=== PATIENT | female | born 1960 | race Caucasian/White ===

== ENCOUNTER 2018-01-09 13:08 | Observation (INO) ==
[2018-01-09] MEDS ORDERED: ENOXAPARIN 100 MG/ML SYRINGE SUBCUT STA (14:19)
[2018-01-09] MEDS ORDERED: ASPIRIN 325 MG TABLET PO STA (14:19)
[2018-01-09] MEDS ORDERED: ASPIRIN 325 MG TABLET ONE (14:42)
[2018-01-09] MEDS ORDERED: ENOXAPARIN 80 MG/0.8 ML SYRINGE SUBCUT ONE (14:42)
[2018-01-09] MEDS ORDERED: hydrALAZINE 20 MG/1 ML VIAL IV STA (14:52)
[2018-01-09] MEDS ORDERED: hydrALAZINE 20 MG/1 ML VIAL ONE (14:53)
[2018-01-09 15:45] LABS: Basophils # 0.2 10*3/uL (0.0-0.2); Basophils % 0.9 % (0.0-0.8); Eosinophils # 0.4 10*3/uL (0.0-0.87); Eosinophils % 2.2 % (0.00-10.9); Hematocrit 44.3 VOL% (35.7-47.0); Immature Granulocytes % 0.9 %; Immature Granulocytes Absolute 0.14 #; Lymphocytes % 12.2 % (21.3-54.2); Mean Corpuscular HGB Conc 33.9 GM/DL (32-36); Mean Corpuscular Hemoglobin 30 PG (27-34); Mean Corpuscular Volume 88.6 FL (87-102); Mean Platelet Volume 11.1 FL (9.6-12.0); Monocytes # 0.8 10*3/uL (0.11-0.8); Monocytes % 4.7 % (1.7-12.7); Neutrophils # 12.9 10*3/uL (1.4-7.4); Neutrophils % 79.1 % (38.7-73.9); Platelet Count 288 T/CUMM (130-400); Red Cell Distribution Width 12.7 % (9.3-17.3); White Blood Count 16.3 T/CUMM (4-12)
[2018-01-09 15:55] LABS: INR 0.9
[2018-01-09] MEDS ORDERED: ONDANSETRON 4 MG/2 ML VIAL IV STA (16:03)
[2018-01-09] MEDS ORDERED: MORPHINE 4 MG/1 ML VIAL IV STA (16:03)
[2018-01-09] MEDS ORDERED: ONDANSETRON 4 MG/2 ML VIAL ONE (16:04)
[2018-01-09] MEDS ORDERED: MORPHINE 4 MG/1 ML VIAL ONE (16:05)
[2018-01-09 16:08] LABS: Albumin 3.8 G/DL (3.4-5.0); Bilirubin,Total 0.9 MG/DL (0.2-1.0); Calcium 9.6 MG/DL (8.5-10.1); Osmolality,Calculated 276.7 MOS/KG (273-304); Potassium 4.1 MMOL/L (3.5-5.1)
[2018-01-09] MEDS ORDERED: MAGNESIUM HYDROXIDE SUSP 30 ML UDCUP PO PRN (17:15)
[2018-01-09] MEDS ORDERED: POTASSIUM CHLORIDE 20 MEQ TABLET PO PRN ×3 (17:15→17:18)
[2018-01-09] MEDS ORDERED: MAGNESIUM SULF RIDER 4 GM in PREMIX 1 EACH IV PRN (17:15)
[2018-01-09] MEDS ORDERED: ACETAMINOPHEN 325 MG TABLET PO PRN (17:15)
[2018-01-09] MEDS ORDERED: ZALEPLON 5 MG CAPSULE PO PRN (17:15)
[2018-01-09] MEDS ORDERED: MAGNESIUM SULF RIDER 2 GM in PREMIX 1 EACH IV PRN (17:15)
[2018-01-09] MEDS ORDERED: FUROSEMIDE 40 MG TABLET PO PRN (17:18)
[2018-01-09] MEDS ORDERED: cloNIDine 0.1 MG TABLET PO PRN (17:18)
[2018-01-09] MEDS: SODIUM CHLORIDE 0.45% 1,000 ML IV SCH (19:05)
[2018-01-09] MEDS ORDERED: ALUM/MAG/SIMETH/LIDO VISC 1:1 30 ML BOTTLE PO ONE (19:42)
[2018-01-09] MEDS ORDERED: FLURAZEPAM HCL 30 MG PO SCH (21:00)
[2018-01-09] MEDS: TEMAZEPAM 15 MG CAPSULE PO SCH (21:49)
[2018-01-09] MEDS: MORPHINE 4 MG/1 ML VIAL IV PRN (21:49)
[2018-01-09] MEDS: tiZANidine 4 MG TABLET PO SCH (21:50)
[2018-01-09] MEDS: TOPIRAMATE 100 MG TABLET PO SCH (21:50)
[2018-01-09] MEDS: ASPIRIN EC 81 MG TABLET PO SCH (21:50)
[2018-01-09] MEDS: LORazepam 1 MG TABLET PO SCH (21:50)
[2018-01-09] MEDS: ZONISAMIDE 100 MG CAPSULE PO SCH (21:51)
[2018-01-09] MEDS: ATORVASTATIN 20 MG TABLET PO SCH (21:51)
[2018-01-10] MEDS: MORPHINE 4 MG/1 ML VIAL IV PRN ×5 (03:15→23:58)
[2018-01-10] MEDS ORDERED: ASPIRIN 325 MG TABLET ONE (07:02)
[2018-01-10] MEDS ORDERED: ASPIRIN CHEW 81 MG TABLET PO ONE (07:22)
[2018-01-10 07:47] LABS: Risk Ratio 2.11; VLDL CHOLESTEROL 22.4 MG/DL
[2018-01-10] MEDS: SODIUM CHLORIDE 0.45% 1,000 ML IV SCH ×4 (07:54→18:48)
[2018-01-10] MEDS: PANTOPRAZOLE 40 MG TABLET PO SCH (09:07)
[2018-01-10] MEDS: CLOPIDOGREL 75 MG TABLET PO SCH (09:08)
[2018-01-10] MEDS: tiZANidine 4 MG TABLET PO SCH ×3 (09:11→21:40)
[2018-01-10] MEDS: CHOLECALCIFEROL 1,000 UNIT TABLET PO SCH ×2 (09:11→15:37)
[2018-01-10] MEDS: ZONISAMIDE 100 MG CAPSULE PO SCH ×2 (09:11→21:40)
[2018-01-10] MEDS: FERROUS SULFATE 325 MG TABLET PO SCH (09:11)
[2018-01-10 11:24] LABS: Basophils # 0.1 10*3/uL (0.0-0.2); Basophils % 0.5 % (0.0-0.8); Eosinophils # 0.1 10*3/uL (0.0-0.87); Eosinophils % 0.6 % (0.00-10.9); Hemoglobin 13.3 GM/DL (12.0-16.0); Immature Granulocytes % 0.8 %; Immature Granulocytes Absolute 0.11 #; Lymphocytes # 1.1 10*3/uL (1.4-4.0); Mean Corpuscular HGB Conc 33.3 GM/DL (32-36); Mean Corpuscular Hemoglobin 30 PG (27-34); Mean Corpuscular Volume 89.7 FL (87-102); Monocytes # 0.6 10*3/uL (0.11-0.8); Monocytes % 4.4 % (1.7-12.7); Neutrophils # 11.7 10*3/uL (1.4-7.4); Neutrophils % 85.7 % (38.7-73.9); Platelet Count 191 T/CUMM (130-400); Red Blood Count 4.46 MC/CUMM (3.8-5.5); White Blood Count 13.6 T/CUMM (4-12)
[2018-01-10] MEDS: ONDANSETRON 4 MG/2 ML VIAL IV PRN ×3 (13:30→23:55)
[2018-01-10] MEDS ORDERED: POTASSIUM CHLORIDE RIDER 10 MEQ in PREMIX 1 EACH IV PRN (15:08)
[2018-01-10] MEDS: LORazepam 1 MG TABLET PO SCH ×4 (15:37→21:38)
[2018-01-10] MEDS: TOPIRAMATE 100 MG TABLET PO SCH ×2 (15:38→21:39)
[2018-01-10 16:41] LABS: Apearance,Urine CLEAR (Clear); Bilirubin,Urine Negative (Negative); Blood, Urine Negative (Negative); Glucose,Urine (UA) Negative (Negative); Ketones,Urine Negative (Negative); Nitrite,Urine Negative (Negative); Protein,Urine Negative; Squamous Epithelial Cell,Urine Occasional /HPF (0-10); Urine Color Straw (Yellow); Urine Specific Gravity 1.005 (1.001-1.035); Urine Urobilinogen < 2.0 EU/DL (0.2-1.0); WBC,Urine <1 /HPF (0-6)
[2018-01-10] MEDS: ASPIRIN EC 81 MG TABLET PO SCH (21:37)
[2018-01-10] MEDS: ATORVASTATIN 20 MG TABLET PO SCH (21:38)
[2018-01-10] MEDS: TEMAZEPAM 15 MG CAPSULE PO SCH (21:38)
[2018-01-11] MEDS: ONDANSETRON 4 MG/2 ML VIAL IV PRN ×2 (03:57→09:53)
[2018-01-11] MEDS: MORPHINE 4 MG/1 ML VIAL IV PRN ×2 (04:02→09:52)
[2018-01-11 05:00] LABS: Basophils # 0.1 10*3/uL (0.0-0.2); Basophils % 0.4 % (0.0-0.8); Eosinophils # 0.1 10*3/uL (0.0-0.87); Eosinophils % 0.9 % (0.00-10.9); Hematocrit 38.6 VOL% (35.7-47.0); Hemoglobin 12.6 GM/DL (12.0-16.0); Immature Granulocytes % 0.5 %; Immature Granulocytes Absolute 0.06 #; Lymphocytes # 1.1 10*3/uL (1.4-4.0); Lymphocytes % 9.2 % (21.3-54.2); Mean Corpuscular HGB Conc 32.6 GM/DL (32-36); Mean Corpuscular Hemoglobin 30 PG (27-34); Mean Corpuscular Volume 92.1 FL (87-102); Mean Platelet Volume 11.5 FL (9.6-12.0); Monocytes % 8.5 % (1.7-12.7); Neutrophils # 9.3 10*3/uL (1.4-7.4); Neutrophils % 80.5 % (38.7-73.9); Platelet Count 133 T/CUMM (130-400); Red Blood Count 4.19 MC/CUMM (3.8-5.5); Red Cell Distribution Width 12.9 % (9.3-17.3); White Blood Count 11.5 T/CUMM (4-12)
[2018-01-11] MEDS: SODIUM CHLORIDE 0.45% 1,000 ML IV SCH ×2 (05:02→09:38)
[2018-01-11 05:26] LABS: Calcium 8.5 MG/DL (8.5-10.1); Potassium 4.2 MMOL/L (3.5-5.1)
[2018-01-11] MEDS ORDERED: LIDOCAINE 1%/EPI INJ 20 ML VIAL ONE (07:08)
[2018-01-11] MEDS ORDERED: HEPARIN/NACL 0.9% 2 UNITS/ML 1,000 ML IV ONE (07:08)
[2018-01-11] MEDS: LORazepam 1 MG TABLET PO SCH ×2 (07:51→10:04)
[2018-01-11] MEDS: PANTOPRAZOLE 40 MG TABLET PO SCH ×2 (07:51→10:05)
[2018-01-11] MEDS ORDERED: DIAZEPAM 5 MG TABLET PO ONE (08:00)
[2018-01-11] MEDS ORDERED: diphenhydrAMINE CAP 25 MG CAPSULE PO ONE (08:00)
[2018-01-11] MEDS ORDERED: fentaNYL 100 MCG/2 ML VIAL ONE (08:03)
[2018-01-11] MEDS ORDERED: MIDAZOLAM 2 MG/2 ML VIAL ONE (08:03)
[2018-01-11] MEDS: FERROUS SULFATE 325 MG TABLET PO SCH (10:04)
[2018-01-11] MEDS: TOPIRAMATE 100 MG TABLET PO SCH (10:04)
[2018-01-11] MEDS: CHOLECALCIFEROL 1,000 UNIT TABLET PO SCH (10:05)
[2018-01-11] MEDS: ZONISAMIDE 100 MG CAPSULE PO SCH (10:05)
[2018-01-11] MEDS: CLOPIDOGREL 75 MG TABLET PO SCH (10:05)
[2018-01-11] MEDS: tiZANidine 4 MG TABLET PO SCH (10:05)
[2018-01-11 12:20] VITALS: BP 96/51
== END 2018-01-11 15:15 | disposition home or self-care (01) ==
LOC: EDUNIT# → EDBD → N.EDINP 13:08 → N.ED 13:08 → N.EDINP 18:09 → N.TELES 18:15
PROVIDERS: ADMIT Internal Medicine Interventional Cardiology; ATTEND Internal Medicine Interventional Cardiology
PROC: CLCCHCL (ICD-10-PCS; 2018-01-11 09:15)

== ENCOUNTER 2018-01-15 10:19 | Inpatient (IN) ==
[2018-01-15] MEDS ORDERED: ALBUTEROL 2.5 MG/3 ML NEB RESP TX STA (10:47)
[2018-01-15 11:10] LABS: Basophils % 0.6 % (0.0-0.8); Eosinophils # 0.2 10*3/uL (0.0-0.87); Eosinophils % 3.6 % (0.00-10.9); Hematocrit 36.9 VOL% (35.7-47.0); Hemoglobin 12.5 GM/DL (12.0-16.0); Immature Granulocytes % 0.5 %; Immature Granulocytes Absolute 0.03 #; Lymphocytes # 1.2 10*3/uL (1.4-4.0); Mean Corpuscular HGB Conc 33.9 GM/DL (32-36); Mean Corpuscular Hemoglobin 30 PG (27-34); Mean Corpuscular Volume 89.8 FL (87-102); Mean Platelet Volume 10.9 FL (9.6-12.0); Monocytes # 0.4 10*3/uL (0.11-0.8); Monocytes % 6.5 % (1.7-12.7); Neutrophils # 4.5 10*3/uL (1.4-7.4); Neutrophils % 69.8 % (38.7-73.9); Platelet Count 215 T/CUMM (130-400); Red Blood Count 4.11 MC/CUMM (3.8-5.5); Red Cell Distribution Width 12.3 % (9.3-17.3); White Blood Count 6.5 T/CUMM (4-12)
[2018-01-15 11:17] LABS: INR 0.9; PT Patient Result 9.7 SECS; Partial Thromboplastin Time 26.4 SECS (0-40)
[2018-01-15 11:54] LABS: Alanine Aminotransferase 14 U/L (13-56); Alkaline Phosphatase 100 U/L (45-117); Aspartate Amino Transferase 11 U/L (0-37); Blood Urea Nitrogen 14 MG/DL (7-18); Calcium 8.9 MG/DL (8.5-10.1); Glucose 125 MG/DL (74-106); Osmolality,Calculated 278.5 MOS/KG (273-304); Potassium 3.9 MMOL/L (3.5-5.1); Sodium 139 MMOL/L (136-145); Total Protein 6.8 G/DL (6.4-8.3); Troponin I Only < 0.015 NG/ML (0.00-0.045)
[2018-01-15 13:50] LABS: ABG Base Excess -4.5 MMOL/L (-2.5-2.5); ABG HCO3 20.7 MMOL/L (20-26); ABG Oxygen Saturation 98.6 % (95-100); ABG PCO2 31.1 MM HG (35-48); ABG PH 7.402 (7.35-7.45); ABG TCO2 17.2 MMOL/L (23-27)
[2018-01-15 14:15] LABS: Barbiturates Screen,Urine Negative (Negative); Benzodiazepines Screen,Urine Positive (Negative); Cannabinoid Screen,Urine Negative (Negative); Opiate Screen,Urine Negative (Negative); Phencyclidine Screen,Urine Negative (Negative)
[2018-01-15 14:22] LABS: Apearance,Urine CLEAR (Clear); Bilirubin,Urine Negative (Negative); Blood, Urine Negative (Negative); Glucose,Urine (UA) Negative (Negative); Ketones,Urine Negative (Negative); Mucus,Urine Occasional /LPF (Occasional); Nitrite,Urine Negative (Negative); Protein,Urine Negative; RBC,Urine <1 /HPF (0-4); Urine Color Yellow (Yellow); Urine Specific Gravity 1.023 (1.001-1.035); Urine Urobilinogen < 2.0 EU/DL (0.2-1.0)
[2018-01-15] MEDS ORDERED: SODIUM CHLORIDE 0.9% 1,000 ML IV STA (14:58)
[2018-01-15] MEDS: ALBUTEROL/IPRATROPIUM 3 ML NEB RESP TX SCH (18:50)
[2018-01-15] MEDS: SODIUM CHLORIDE 0.9% 1,000 ML IV SCH (19:35)
[2018-01-15] MEDS ORDERED: cloNIDine 0.1 MG TABLET PO PRN (20:00)
[2018-01-15] MEDS ORDERED: MIDODRINE 5 MG TABLET PO PRN (20:00)
[2018-01-15] MEDS ORDERED: FUROSEMIDE 40 MG TABLET PO PRN (20:00)
[2018-01-15] MEDS ORDERED: POTASSIUM CHLORIDE 20 MEQ TABLET PO PRN (20:00)
[2018-01-15] MEDS: LEVOFLOXACIN INJ 750 MG in PREMIX 1 EACH IV SCH (20:16)
[2018-01-15] MEDS: TOPIRAMATE 100 MG TABLET PO SCH (20:41)
[2018-01-15] MEDS: CLOPIDOGREL 75 MG TABLET PO SCH (20:42)
[2018-01-15] MEDS: ATORVASTATIN 20 MG TABLET PO SCH (20:42)
[2018-01-15] MEDS: CHOLECALCIFEROL 1,000 UNIT TABLET PO SCH (20:42)
[2018-01-15] MEDS: ASPIRIN EC 81 MG TABLET PO SCH (20:42)
[2018-01-15] MEDS: tiZANidine 4 MG TABLET PO SCH (20:42)
[2018-01-15] MEDS: FERROUS SULFATE 325 MG TABLET PO SCH (20:42)
[2018-01-15] MEDS: ZONISAMIDE 100 MG CAPSULE PO SCH (20:43)
[2018-01-15] MEDS: ENOXAPARIN 40 MG/0.4 ML SYRINGE SUBCUT SCH (20:43)
[2018-01-15] MEDS: PANTOPRAZOLE 40 MG TABLET PO SCH (20:43)
[2018-01-15] MEDS: LORazepam 1 MG TABLET PO SCH (20:43)
[2018-01-15] MEDS: TEMAZEPAM 15 MG CAPSULE PO PRN (22:32)
[2018-01-16] MEDS: ALBUTEROL/IPRATROPIUM 3 ML NEB RESP TX SCH ×4 (01:25→20:25)
[2018-01-16] MEDS: SODIUM CHLORIDE 0.9% 1,000 ML IV SCH ×2 (04:49→13:00)
[2018-01-16 04:59] LABS: Basophils % 0.6 % (0.0-0.8); Eosinophils # 0.1 10*3/uL (0.0-0.87); Eosinophils % 2.2 % (0.00-10.9); Hematocrit 32.5 VOL% (35.7-47.0); Hemoglobin 10.2 GM/DL (12.0-16.0); Immature Granulocytes % 0.6 %; Immature Granulocytes Absolute 0.04 #; Lymphocytes # 1.1 10*3/uL (1.4-4.0); Lymphocytes % 16.6 % (21.3-54.2); Mean Corpuscular HGB Conc 31.4 GM/DL (32-36); Mean Corpuscular Hemoglobin 29 PG (27-34); Mean Corpuscular Volume 92.3 FL (87-102); Mean Platelet Volume 10.8 FL (9.6-12.0); Monocytes # 0.5 10*3/uL (0.11-0.8); Monocytes % 7.1 % (1.7-12.7); Neutrophils # 4.7 10*3/uL (1.4-7.4); Neutrophils % 72.9 % (38.7-73.9); Platelet Count 164 T/CUMM (130-400); Red Blood Count 3.52 MC/CUMM (3.8-5.5); Red Cell Distribution Width 12.4 % (9.3-17.3); White Blood Count 6.4 T/CUMM (4-12)
[2018-01-16 05:34] LABS: Albumin 2.5 G/DL (3.4-5.0); Bilirubin,Total 0.6 MG/DL (0.2-1.0); Calcium 8.3 MG/DL (8.5-10.1); Potassium 3.6 MMOL/L (3.5-5.1); Total Protein 5.6 G/DL (6.4-8.3)
[2018-01-16] MEDS: TOPIRAMATE 100 MG TABLET PO SCH ×2 (08:41→21:10)
[2018-01-16] MEDS: tiZANidine 4 MG TABLET PO SCH ×3 (08:41→21:07)
[2018-01-16] MEDS: PANTOPRAZOLE 40 MG TABLET PO SCH ×2 (08:41→21:12)
[2018-01-16] MEDS: LORazepam 1 MG TABLET PO SCH ×3 (08:41→21:08)
[2018-01-16] MEDS: ZONISAMIDE 100 MG CAPSULE PO SCH ×2 (08:41→21:11)
[2018-01-16] MEDS ORDERED: FLURAZEPAM HCL 30 MG PO SCH (09:00)
[2018-01-16] MEDS ORDERED: PANTOPRAZOLE 40 MG TABLET PO SCH (09:00)
[2018-01-16] MEDS: VANCOMYCIN INJ 1,250 MG in SODIUM CHLORIDE 0.9% 250 ML IV SCH (17:12)
[2018-01-16] MEDS: LEVOFLOXACIN INJ 750 MG in PREMIX 1 EACH IV SCH (21:05)
[2018-01-16] MEDS: CLOPIDOGREL 75 MG TABLET PO SCH (21:11)
[2018-01-16] MEDS: FERROUS SULFATE 325 MG TABLET PO SCH (21:12)
[2018-01-16] MEDS: CHOLECALCIFEROL 1,000 UNIT TABLET PO SCH (21:12)
[2018-01-16] MEDS: ATORVASTATIN 20 MG TABLET PO SCH (21:12)
[2018-01-16] MEDS: TEMAZEPAM 15 MG CAPSULE PO PRN (21:13)
[2018-01-16] MEDS: ENOXAPARIN 40 MG/0.4 ML SYRINGE SUBCUT SCH (21:14)
[2018-01-16] MEDS: ASPIRIN EC 81 MG TABLET PO SCH (21:18)
[2018-01-17] MEDS: ALBUTEROL/IPRATROPIUM 3 ML NEB RESP TX SCH ×4 (00:20→19:21)
[2018-01-17] MEDS: SODIUM CHLORIDE 0.9% 1,000 ML IV SCH ×3 (01:01→15:12)
[2018-01-17] MEDS: VANCOMYCIN INJ 1,250 MG in SODIUM CHLORIDE 0.9% 250 ML IV SCH ×2 (05:09→17:56)
[2018-01-17 05:14] LABS: Basophils % 0.7 % (0.0-0.8); Eosinophils # 0.1 10*3/uL (0.0-0.87); Eosinophils % 2.5 % (0.00-10.9); Hematocrit 29.8 VOL% (35.7-47.0); Hemoglobin 9.7 GM/DL (12.0-16.0); Immature Granulocytes % 0.4 %; Immature Granulocytes Absolute 0.02 #; Lymphocytes # 0.8 10*3/uL (1.4-4.0); Lymphocytes % 13.3 % (21.3-54.2); Mean Corpuscular HGB Conc 32.6 GM/DL (32-36); Mean Corpuscular Hemoglobin 30 PG (27-34); Mean Corpuscular Volume 91.4 FL (87-102); Monocytes # 0.4 10*3/uL (0.11-0.8); Monocytes % 6.2 % (1.7-12.7); Neutrophils # 4.3 10*3/uL (1.4-7.4); Neutrophils % 76.9 % (38.7-73.9); Platelet Count 161 T/CUMM (130-400); Red Blood Count 3.26 MC/CUMM (3.8-5.5); Red Cell Distribution Width 12.5 % (9.3-17.3); White Blood Count 5.6 T/CUMM (4-12)
[2018-01-17 05:45] LABS: Potassium 3.5 MMOL/L (3.5-5.1)
[2018-01-17] MEDS: ZONISAMIDE 100 MG CAPSULE PO SCH ×2 (09:56→20:36)
[2018-01-17] MEDS: LORazepam 1 MG TABLET PO SCH ×3 (09:56→20:36)
[2018-01-17] MEDS: PANTOPRAZOLE 40 MG TABLET PO SCH ×2 (09:56→20:36)
[2018-01-17] MEDS: TOPIRAMATE 100 MG TABLET PO SCH ×2 (09:57→20:36)
[2018-01-17] MEDS: tiZANidine 4 MG TABLET PO SCH ×3 (09:58→20:36)
[2018-01-17] MEDS: CLOPIDOGREL 75 MG TABLET PO SCH (20:36)
[2018-01-17] MEDS: ATORVASTATIN 20 MG TABLET PO SCH (20:36)
[2018-01-17] MEDS: CHOLECALCIFEROL 1,000 UNIT TABLET PO SCH (20:36)
[2018-01-17] MEDS: FERROUS SULFATE 325 MG TABLET PO SCH (20:36)
[2018-01-17] MEDS: ASPIRIN EC 81 MG TABLET PO SCH (20:36)
[2018-01-17] MEDS: ENOXAPARIN 40 MG/0.4 ML SYRINGE SUBCUT SCH (20:36)
[2018-01-17] MEDS: LEVOFLOXACIN INJ 750 MG in PREMIX 1 EACH IV SCH (20:41)
[2018-01-17] MEDS: TEMAZEPAM 15 MG CAPSULE PO PRN (21:55)
[2018-01-18] MEDS: ALBUTEROL/IPRATROPIUM 3 ML NEB RESP TX SCH ×4 (00:45→19:49)
[2018-01-18] MEDS: SODIUM CHLORIDE 0.9% 1,000 ML IV SCH ×3 (02:09→18:22)
[2018-01-18] MEDS: VANCOMYCIN INJ 1,250 MG in SODIUM CHLORIDE 0.9% 250 ML IV SCH ×2 (06:14→17:44)
[2018-01-18] MEDS: TOPIRAMATE 100 MG TABLET PO SCH ×2 (09:49→20:10)
[2018-01-18] MEDS: PANTOPRAZOLE 40 MG TABLET PO SCH ×2 (09:49→20:10)
[2018-01-18] MEDS: ZONISAMIDE 100 MG CAPSULE PO SCH ×2 (09:49→20:11)
[2018-01-18] MEDS: LORazepam 1 MG TABLET PO SCH ×3 (09:49→20:09)
[2018-01-18] MEDS: tiZANidine 4 MG TABLET PO SCH ×3 (09:49→20:11)
[2018-01-18] MEDS: oxyCODONE/ACETAMINOPHEN 5-325 MG TABLET PO PRN ×2 (14:05→20:08)
[2018-01-18] MEDS: LIDOCAINE 5% PATCH TRANSDERM SCH (14:06)
[2018-01-18] MEDS: ATORVASTATIN 20 MG TABLET PO SCH (20:09)
[2018-01-18] MEDS: ENOXAPARIN 40 MG/0.4 ML SYRINGE SUBCUT SCH (20:09)
[2018-01-18] MEDS: ASPIRIN EC 81 MG TABLET PO SCH (20:09)
[2018-01-18] MEDS: FERROUS SULFATE 325 MG TABLET PO SCH (20:09)
[2018-01-18] MEDS: CHOLECALCIFEROL 1,000 UNIT TABLET PO SCH (20:10)
[2018-01-18] MEDS: CLOPIDOGREL 75 MG TABLET PO SCH (20:10)
[2018-01-18] MEDS: TEMAZEPAM 15 MG CAPSULE PO PRN (20:11)
[2018-01-18] MEDS: LEVOFLOXACIN INJ 750 MG in PREMIX 1 EACH IV SCH (20:18)
[2018-01-19] MEDS: ALBUTEROL/IPRATROPIUM 3 ML NEB RESP TX SCH ×4 (01:28→19:48)
[2018-01-19] MEDS: oxyCODONE/ACETAMINOPHEN 5-325 MG TABLET PO PRN ×4 (01:46→20:31)
[2018-01-19] MEDS: SODIUM CHLORIDE 0.9% 1,000 ML IV SCH ×3 (03:02→20:38)
[2018-01-19] MEDS: VANCOMYCIN INJ 1,250 MG in SODIUM CHLORIDE 0.9% 250 ML IV SCH ×3 (04:38→22:57)
[2018-01-19 06:08] LABS: Basophils % 0.4 % (0.0-0.8); Eosinophils # 0.2 10*3/uL (0.0-0.87); Eosinophils % 2.2 % (0.00-10.9); Hematocrit 31.6 VOL% (35.7-47.0); Hemoglobin 10.2 GM/DL (12.0-16.0); Immature Granulocytes % 0.6 %; Immature Granulocytes Absolute 0.04 #; Lymphocytes # 0.7 10*3/uL (1.4-4.0); Lymphocytes % 10.1 % (21.3-54.2); Mean Corpuscular HGB Conc 32.3 GM/DL (32-36); Mean Corpuscular Hemoglobin 30 PG (27-34); Mean Corpuscular Volume 91.9 FL (87-102); Monocytes # 0.3 10*3/uL (0.11-0.8); Monocytes % 4.6 % (1.7-12.7); Neutrophils # 5.7 10*3/uL (1.4-7.4); Neutrophils % 82.1 % (38.7-73.9); Platelet Count 243 T/CUMM (130-400); Red Blood Count 3.44 MC/CUMM (3.8-5.5); Red Cell Distribution Width 12.7 % (9.3-17.3); White Blood Count 6.9 T/CUMM (4-12)
[2018-01-19 06:16] LABS: Calcium 8.6 MG/DL (8.5-10.1); Osmolality,Calculated 279.3 MOS/KG (273-304); Potassium 3.4 MMOL/L (3.5-5.1)
[2018-01-19] MEDS: LORazepam 1 MG TABLET PO SCH ×3 (09:17→20:30)
[2018-01-19] MEDS: TOPIRAMATE 100 MG TABLET PO SCH ×2 (09:17→20:31)
[2018-01-19] MEDS: ZONISAMIDE 100 MG CAPSULE PO SCH ×2 (09:17→20:30)
[2018-01-19] MEDS: PANTOPRAZOLE 40 MG TABLET PO SCH ×2 (09:17→20:30)
[2018-01-19] MEDS: tiZANidine 4 MG TABLET PO SCH ×3 (09:18→20:30)
[2018-01-19] MEDS: LIDOCAINE 5% PATCH TRANSDERM SCH (09:19)
[2018-01-19] MEDS ORDERED: BISACODYL 5 MG TABLET PO ONE (15:34)
[2018-01-19] MEDS: ONDANSETRON 4 MG/2 ML VIAL IV PRN (18:35)
[2018-01-19] MEDS: guaiFENesin 200 MG/10 ML UDCUP PO PRN ×2 (18:37→22:58)
[2018-01-19] MEDS: ASPIRIN EC 81 MG TABLET PO SCH (20:30)
[2018-01-19] MEDS: DOCUSATE SODIUM 100 MG CAPSULE PO SCH (20:30)
[2018-01-19] MEDS: FERROUS SULFATE 325 MG TABLET PO SCH (20:30)
[2018-01-19] MEDS: CLOPIDOGREL 75 MG TABLET PO SCH (20:30)
[2018-01-19] MEDS: CHOLECALCIFEROL 1,000 UNIT TABLET PO SCH (20:30)
[2018-01-19] MEDS: ATORVASTATIN 20 MG TABLET PO SCH (20:30)
[2018-01-19] MEDS: ENOXAPARIN 40 MG/0.4 ML SYRINGE SUBCUT SCH (20:31)
[2018-01-19] MEDS: LEVOFLOXACIN INJ 750 MG in PREMIX 1 EACH IV SCH (20:35)
[2018-01-20] MEDS: SODIUM CHLORIDE 0.9% 1,000 ML IV SCH ×2 (00:44→08:45)
[2018-01-20] MEDS: ALBUTEROL/IPRATROPIUM 3 ML NEB RESP TX SCH ×4 (00:51→19:19)
[2018-01-20] MEDS: oxyCODONE/ACETAMINOPHEN 5-325 MG TABLET PO PRN ×4 (02:41→21:08)
[2018-01-20] MEDS: guaiFENesin 200 MG/10 ML UDCUP PO PRN ×5 (03:40→22:34)
[2018-01-20 04:15] LABS: Basophils % 0.7 % (0.0-0.8); Eosinophils # 0.2 10*3/uL (0.0-0.87); Eosinophils % 3.9 % (0.00-10.9); Hematocrit 27.8 VOL% (35.7-47.0); Hemoglobin 8.7 GM/DL (12.0-16.0); Immature Granulocytes % 1.1 %; Immature Granulocytes Absolute 0.05 #; Lymphocytes # 0.7 10*3/uL (1.4-4.0); Lymphocytes % 15.3 % (21.3-54.2); Mean Corpuscular HGB Conc 31.3 GM/DL (32-36); Mean Corpuscular Hemoglobin 30 PG (27-34); Mean Corpuscular Volume 95.2 FL (87-102); Mean Platelet Volume 10.4 FL (9.6-12.0); Monocytes # 0.4 10*3/uL (0.11-0.8); Monocytes % 8.1 % (1.7-12.7); Neutrophils # 3.3 10*3/uL (1.4-7.4); Neutrophils % 70.9 % (38.7-73.9); Platelet Count 185 T/CUMM (130-400); Red Blood Count 2.92 MC/CUMM (3.8-5.5); Red Cell Distribution Width 12.7 % (9.3-17.3); White Blood Count 4.6 T/CUMM (4-12)
[2018-01-20 04:42] LABS: Calcium 8.1 MG/DL (8.5-10.1); Osmolality,Calculated 285.8 MOS/KG (273-304); Potassium 3.3 MMOL/L (3.5-5.1)
[2018-01-20] MEDS ORDERED: POTASSIUM CHLORIDE 20 MEQ TABLET PO ONE (08:47)
[2018-01-20] MEDS: DOCUSATE SODIUM 100 MG CAPSULE PO SCH ×2 (09:51→21:07)
[2018-01-20] MEDS: ZONISAMIDE 100 MG CAPSULE PO SCH ×2 (09:51→21:07)
[2018-01-20] MEDS: tiZANidine 4 MG TABLET PO SCH ×3 (09:51→21:04)
[2018-01-20] MEDS: TOPIRAMATE 100 MG TABLET PO SCH ×2 (09:51→21:07)
[2018-01-20] MEDS: LORazepam 1 MG TABLET PO SCH ×3 (09:56→21:05)
[2018-01-20] MEDS: PANTOPRAZOLE 40 MG TABLET PO SCH ×2 (09:56→21:05)
[2018-01-20] MEDS: LIDOCAINE 5% PATCH TRANSDERM SCH (09:56)
[2018-01-20] MEDS: ONDANSETRON 4 MG/2 ML VIAL IV PRN ×3 (09:58→18:42)
[2018-01-20] MEDS: VANCOMYCIN INJ 1,250 MG in SODIUM CHLORIDE 0.9% 250 ML IV SCH (13:18)
[2018-01-20] MEDS: LEVOFLOXACIN INJ 750 MG in PREMIX 1 EACH IV SCH (20:56)
[2018-01-20] MEDS: ENOXAPARIN 40 MG/0.4 ML SYRINGE SUBCUT SCH (21:00)
[2018-01-20] MEDS: ATORVASTATIN 20 MG TABLET PO SCH (21:05)
[2018-01-20] MEDS: CLOPIDOGREL 75 MG TABLET PO SCH (21:07)
[2018-01-20] MEDS: FERROUS SULFATE 325 MG TABLET PO SCH (21:07)
[2018-01-20] MEDS: CHOLECALCIFEROL 1,000 UNIT TABLET PO SCH (21:07)
[2018-01-20] MEDS: TEMAZEPAM 15 MG CAPSULE PO PRN (21:07)
[2018-01-20] MEDS: ASPIRIN EC 81 MG TABLET PO SCH (21:08)
[2018-01-21] MEDS: ALBUTEROL/IPRATROPIUM 3 ML NEB RESP TX SCH ×4 (01:00→19:40)
[2018-01-21] MEDS: oxyCODONE/ACETAMINOPHEN 5-325 MG TABLET PO PRN ×4 (03:13→21:21)
[2018-01-21] MEDS: guaiFENesin 200 MG/10 ML UDCUP PO PRN ×5 (03:17→21:19)
[2018-01-21] MEDS: VANCOMYCIN INJ 1,250 MG in SODIUM CHLORIDE 0.9% 250 ML IV SCH (04:47)
[2018-01-21 05:33] LABS: Calcium 8.5 MG/DL (8.5-10.1); Potassium 3.7 MMOL/L (3.5-5.1)
[2018-01-21] MEDS ORDERED: hydrALAZINE 20 MG/1 ML VIAL IV ONE (06:00)
[2018-01-21] MEDS: LORazepam 1 MG TABLET PO SCH ×3 (08:29→21:20)
[2018-01-21] MEDS: ZONISAMIDE 100 MG CAPSULE PO SCH ×2 (08:29→21:20)
[2018-01-21] MEDS: DOCUSATE SODIUM 100 MG CAPSULE PO SCH ×2 (08:29→21:20)
[2018-01-21] MEDS: tiZANidine 4 MG TABLET PO SCH ×3 (08:29→21:20)
[2018-01-21] MEDS: TOPIRAMATE 100 MG TABLET PO SCH ×2 (08:29→21:20)
[2018-01-21] MEDS: PANTOPRAZOLE 40 MG TABLET PO SCH ×2 (08:29→21:19)
[2018-01-21] MEDS: LIDOCAINE 5% PATCH TRANSDERM SCH (09:15)
[2018-01-21] MEDS ORDERED: FUROSEMIDE 40 MG/4 ML VIAL IV ONE (09:43)
[2018-01-21] MEDS: LEVOFLOXACIN INJ 750 MG in PREMIX 1 EACH IV SCH (20:01)
[2018-01-21] MEDS: CLOPIDOGREL 75 MG TABLET PO SCH (21:20)
[2018-01-21] MEDS: CHOLECALCIFEROL 1,000 UNIT TABLET PO SCH (21:20)
[2018-01-21] MEDS: ATORVASTATIN 20 MG TABLET PO SCH (21:20)
[2018-01-21] MEDS: ASPIRIN EC 81 MG TABLET PO SCH (21:20)
[2018-01-21] MEDS: FERROUS SULFATE 325 MG TABLET PO SCH (21:20)
[2018-01-21] MEDS: TEMAZEPAM 15 MG CAPSULE PO PRN (21:21)
[2018-01-21] MEDS: ENOXAPARIN 40 MG/0.4 ML SYRINGE SUBCUT SCH (21:22)
[2018-01-22] MEDS: ALBUTEROL/IPRATROPIUM 3 ML NEB RESP TX SCH ×3 (01:20→14:04)
[2018-01-22] MEDS: guaiFENesin 200 MG/10 ML UDCUP PO PRN ×2 (01:23→09:36)
[2018-01-22] MEDS: oxyCODONE/ACETAMINOPHEN 5-325 MG TABLET PO PRN ×2 (04:21→09:42)
[2018-01-22] MEDS: VANCOMYCIN INJ 1,250 MG in SODIUM CHLORIDE 0.9% 250 ML IV SCH (05:53)
[2018-01-22] MEDS ORDERED: fentaNYL 12 MCG/HR PATCH TRANSDERM SCH (09:00)
[2018-01-22] MEDS: LIDOCAINE 5% PATCH TRANSDERM SCH (09:36)
[2018-01-22] MEDS: PANTOPRAZOLE 40 MG TABLET PO SCH (09:36)
[2018-01-22] MEDS: tiZANidine 4 MG TABLET PO SCH ×2 (09:36→12:40)
[2018-01-22] MEDS: LORazepam 1 MG TABLET PO SCH (09:36)
[2018-01-22] MEDS: TOPIRAMATE 100 MG TABLET PO SCH (09:36)
[2018-01-22] MEDS: DOCUSATE SODIUM 100 MG CAPSULE PO SCH (09:36)
[2018-01-22] MEDS: ZONISAMIDE 100 MG CAPSULE PO SCH (09:36)
[2018-01-22] MEDS ORDERED: MAGNESIUM HYDROXIDE SUSP 30 ML UDCUP PO PRN (09:49)
[2018-01-22 12:15] VITALS: BP 111/60
[2018-01-23] MEDS ORDERED: VANCOMYCIN INJ 1,000 MG in SODIUM CHLORIDE 0.9% 250 ML IV SCH
== END 2018-01-22 14:24 | DRG 872 ==
LOC: EDBD → EDUNIT# → N.ED 10:19 → N.EDINP 10:19 → N.4E 19:00 → SUATTDRO 01-16 14:52
PROVIDERS: ADMIT Internal Medicine; ATTEND Internal Medicine

== ENCOUNTER 2018-04-26 11:29 | Inpatient (IN) ==
[2018-04-26] MEDS ORDERED: KETOROLAC 60 MG/2 ML VIAL IM STA (12:22)
[2018-04-26] MEDS ORDERED: DEXAMETHASONE 10 MG/1 ML VIAL IM STA (12:22)
[2018-04-26 13:58] LABS: Apearance,Urine CLEAR (Clear); Bilirubin,Urine Negative (Negative); Blood, Urine Negative (Negative); Glucose,Urine (UA) Negative (Negative); Hyaline Casts,Urine 1 /LPF (0-3); Ketones,Urine Negative (Negative); Mucus,Urine Occasional /LPF (Occasional); Nitrite,Urine Negative (Negative); Protein,Urine Negative; Renal Epithelial Cells,Urine Occasional /HPF (<1); Squamous Epithelial Cell,Urine Occasional /HPF (0-10); Urine Color Yellow (Yellow); Urine Specific Gravity 1.006 (1.001-1.035); Urine Urobilinogen < 2.0 EU/DL (0.2-1.0); WBC,Urine 1 /HPF (0-6)
[2018-04-26 13:59] LABS: Barbiturates Screen,Urine Negative (Negative); Benzodiazepines Screen,Urine Positive (Negative); Cannabinoid Screen,Urine Negative (Negative); Opiate Screen,Urine Positive (Negative); Phencyclidine Screen,Urine Negative (Negative)
[2018-04-26] MEDS ORDERED: LORazepam 2 MG/1 ML VIAL ONE (14:14)
[2018-04-26] MEDS ORDERED: PHENYTOIN INJ 1,000 MG in SODIUM CHLORIDE 0.9% 100 ML IV STA (14:22)
[2018-04-26 15:08] LABS: Basophils # 0.1 10*3/uL (0.0-0.2); Basophils % 0.6 % (0.0-0.8); Eosinophils # 0.6 10*3/uL (0.0-0.87); Eosinophils % 5.2 % (0.00-10.9); Hematocrit 41.5 VOL% (35.7-47.0); Hemoglobin 13.1 GM/DL (12.0-16.0); Immature Granulocytes % 0.5 %; Immature Granulocytes Absolute 0.06 #; Lymphocytes # 1.6 10*3/uL (1.4-4.0); Mean Corpuscular HGB Conc 31.6 GM/DL (32-36); Mean Corpuscular Hemoglobin 29 PG (27-34); Mean Corpuscular Volume 92.4 FL (87-102); Mean Platelet Volume 10.4 FL (9.6-12.0); Monocytes # 0.4 10*3/uL (0.11-0.8); Monocytes % 3.4 % (1.7-12.7); Neutrophils # 9.5 10*3/uL (1.4-7.4); Neutrophils % 77.3 % (38.7-73.9); Platelet Count 292 T/CUMM (130-400); Red Blood Count 4.49 MC/CUMM (3.8-5.5); Red Cell Distribution Width 13.2 % (9.3-17.3); White Blood Count 12.3 T/CUMM (4-12)
[2018-04-26 15:18] LABS: INR 0.9; PT Patient Result 9.9 SECS; Partial Thromboplastin Time 22.1 SECS (0-40)
[2018-04-26] MEDS ORDERED: LEVOFLOXACIN INJ 750 MG in PREMIX 1 EACH IV STA (15:20)
[2018-04-26] MEDS ORDERED: ALBUTEROL NEB SOLN 5 MG/ML 20 ML/BOTTLE CONT NEB STA (15:20)
[2018-04-26 15:32] LABS: Ammonia 15 UMOL/L (11-32)
[2018-04-26 15:38] LABS: Alanine Aminotransferase 36 U/L (13-56); Albumin 3.2 G/DL (3.4-5.0); Alkaline Phosphatase 113 U/L (45-117); Aspartate Amino Transferase 26 U/L (0-37); Blood Urea Nitrogen 18 MG/DL (7-18); Calcium 9.5 MG/DL (8.5-10.1); Glucose 95 MG/DL (74-106); Osmolality,Calculated 284.1 MOS/KG (273-304); Potassium 3.8 MMOL/L (3.5-5.1); Sodium 142 MMOL/L (136-145); Total Protein 7.8 G/DL (6.4-8.3)
[2018-04-26] MEDS ORDERED: ACETAMINOPHEN 325 MG TABLET PO PRN (16:44)
[2018-04-26] MEDS ORDERED: DOCUSATE SODIUM 100 MG CAPSULE PO PRN (16:47)
[2018-04-26] MEDS ORDERED: ALBUTEROL/IPRATROPIUM 3 ML NEB RESP TX SCH (17:00)
[2018-04-26] MEDS ORDERED: ORPHENADRINE 60 MG/2 ML VIAL IM STA (18:23)
[2018-04-26] MEDS: ALBUTEROL/IPRATROPIUM 3 ML NEB RESP TX SCH (19:02)
[2018-04-26] MEDS: ZONISAMIDE 100 MG CAPSULE PO SCH (21:42)
[2018-04-26] MEDS: TOPIRAMATE 200 MG TABLET PO SCH (21:42)
[2018-04-26] MEDS: AMOXICILLIN/CLAV 875 MG TABLET PO SCH (21:42)
[2018-04-26] MEDS: LORazepam 1 MG TABLET PO SCH (21:42)
[2018-04-26] MEDS: tiZANidine 4 MG TABLET PO SCH (21:42)
[2018-04-26] MEDS: PANTOPRAZOLE 40 MG TABLET PO SCH (21:42)
[2018-04-26] MEDS: TEMAZEPAM 15 MG CAPSULE PO PRN (22:47)
[2018-04-27] MEDS: ALBUTEROL/IPRATROPIUM 3 ML NEB RESP TX SCH ×4 (00:45→19:14)
[2018-04-27 08:05] LABS: Basophils % 0.4 % (0.0-0.8); Eosinophils # 0.6 10*3/uL (0.0-0.87); Eosinophils % 6.4 % (0.00-10.9); Hematocrit 35.3 VOL% (35.7-47.0); Hemoglobin 11.6 GM/DL (12.0-16.0); Immature Granulocytes % 0.5 %; Immature Granulocytes Absolute 0.05 #; Lymphocytes # 1.8 10*3/uL (1.4-4.0); Lymphocytes % 19.1 % (21.3-54.2); Mean Corpuscular HGB Conc 32.9 GM/DL (32-36); Mean Corpuscular Hemoglobin 30 PG (27-34); Mean Corpuscular Volume 90.5 FL (87-102); Mean Platelet Volume 10.7 FL (9.6-12.0); Monocytes # 0.5 10*3/uL (0.11-0.8); Monocytes % 5.6 % (1.7-12.7); Neutrophils # 6.5 10*3/uL (1.4-7.4); Platelet Count 275 T/CUMM (130-400); Red Cell Distribution Width 13.5 % (9.3-17.3); White Blood Count 9.6 T/CUMM (4-12)
[2018-04-27 08:38] LABS: Osmolality,Calculated 291.6 MOS/KG (273-304); Potassium 3.7 MMOL/L (3.5-5.1)
[2018-04-27] MEDS: ASPIRIN EC 81 MG TABLET PO SCH (08:57)
[2018-04-27] MEDS: MAGNESIUM OXIDE 400 MG TABLET PO SCH (08:57)
[2018-04-27] MEDS: AMOXICILLIN/CLAV 875 MG TABLET PO SCH ×2 (08:57→20:41)
[2018-04-27] MEDS: PRAVASTATIN 20 MG TABLET PO SCH (08:57)
[2018-04-27] MEDS: tiZANidine 4 MG TABLET PO SCH ×3 (08:58→20:41)
[2018-04-27] MEDS: CLOPIDOGREL 75 MG TABLET PO SCH (08:58)
[2018-04-27] MEDS: ZONISAMIDE 100 MG CAPSULE PO SCH ×2 (08:58→20:42)
[2018-04-27] MEDS: LORazepam 1 MG TABLET PO SCH ×3 (08:58→20:42)
[2018-04-27] MEDS: TOPIRAMATE 200 MG TABLET PO SCH ×2 (08:58→20:42)
[2018-04-27] MEDS: PANTOPRAZOLE 40 MG TABLET PO SCH ×2 (08:58→20:42)
[2018-04-27] MEDS ORDERED: FLURAZEPAM HCL 30 MG PO SCH (09:00)
[2018-04-27] MEDS ORDERED: PANTOPRAZOLE 40 MG TABLET PO SCH (09:00)
[2018-04-27] MEDS ORDERED: LORazepam 2 MG/1 ML VIAL IV PRN (10:25)
[2018-04-27] MEDS: FUROSEMIDE 40 MG/4 ML VIAL IV SCH (12:22)
[2018-04-27] MEDS: DOCUSATE SODIUM 100 MG CAPSULE PO PRN (13:37)
[2018-04-27] MEDS ORDERED: LIDOCAINE 5% PATCH TRANSDERM SCH (14:00)
[2018-04-27] MEDS: MIDODRINE 5 MG TABLET PO PRN (15:26)
[2018-04-27] MEDS ORDERED: SODIUM CHLORIDE 0.9% 1,000 ML IV ONE (17:07)
[2018-04-27] MEDS ORDERED: MIDODRINE 5 MG TABLET PO ONE (17:08)
[2018-04-27] MEDS ORDERED: HEPARIN LOCK FLUSH 500 UNIT/5 ML SYRINGE IV PRN (17:15)
[2018-04-27] MEDS: HEPARIN LOCK FLUSH 500 UNIT/5 ML SYRINGE IV SCH (17:53)
[2018-04-27] MEDS: TEMAZEPAM 15 MG CAPSULE PO PRN (20:43)
[2018-04-28] MEDS: ALBUTEROL/IPRATROPIUM 3 ML NEB RESP TX SCH ×4 (00:56→19:12)
[2018-04-28] MEDS: HEPARIN LOCK FLUSH 500 UNIT/5 ML SYRINGE IV SCH ×2 (05:25→16:34)
[2018-04-28] MEDS: AMOXICILLIN/CLAV 875 MG TABLET PO SCH ×2 (08:56→21:33)
[2018-04-28] MEDS: TOPIRAMATE 200 MG TABLET PO SCH ×2 (08:57→21:39)
[2018-04-28] MEDS: PRAVASTATIN 20 MG TABLET PO SCH ×2 (08:57→10:00)
[2018-04-28] MEDS: PANTOPRAZOLE 40 MG TABLET PO SCH ×2 (08:57→21:36)
[2018-04-28] MEDS: ASPIRIN EC 81 MG TABLET PO SCH ×2 (08:57→10:00)
[2018-04-28] MEDS: LORazepam 1 MG TABLET PO SCH ×3 (08:57→21:33)
[2018-04-28] MEDS: tiZANidine 4 MG TABLET PO SCH ×3 (08:57→21:32)
[2018-04-28] MEDS: MAGNESIUM OXIDE 400 MG TABLET PO SCH ×2 (08:57→10:00)
[2018-04-28] MEDS: DOCUSATE SODIUM 100 MG CAPSULE PO PRN (08:58)
[2018-04-28] MEDS: ZONISAMIDE 100 MG CAPSULE PO SCH ×2 (08:58→21:33)
[2018-04-28] MEDS: CLOPIDOGREL 75 MG TABLET PO SCH (08:59)
[2018-04-28] MEDS: FUROSEMIDE 40 MG/4 ML VIAL IV SCH ×2 (14:32→21:24)
[2018-04-28] MEDS: TEMAZEPAM 15 MG CAPSULE PO PRN (21:31)
[2018-04-28] MEDS: cloNIDine 0.1 MG TABLET PO PRN (23:39)
[2018-04-29] MEDS: ALBUTEROL/IPRATROPIUM 3 ML NEB RESP TX SCH ×4 (01:08→19:28)
[2018-04-29] MEDS: HEPARIN LOCK FLUSH 500 UNIT/5 ML SYRINGE IV SCH ×2 (04:43→16:44)
[2018-04-29] MEDS: FUROSEMIDE 40 MG/4 ML VIAL IV SCH ×3 (04:46→21:18)
[2018-04-29] MEDS: cloNIDine 0.1 MG TABLET PO PRN ×2 (06:02→08:35)
[2018-04-29] MEDS: PANTOPRAZOLE 40 MG TABLET PO SCH ×2 (08:34→21:14)
[2018-04-29] MEDS: DOCUSATE SODIUM 100 MG CAPSULE PO PRN ×2 (08:35→21:17)
[2018-04-29] MEDS: AMOXICILLIN/CLAV 875 MG TABLET PO SCH ×2 (08:35→21:16)
[2018-04-29] MEDS: TOPIRAMATE 200 MG TABLET PO SCH ×2 (08:35→21:15)
[2018-04-29] MEDS: ZONISAMIDE 100 MG CAPSULE PO SCH ×2 (08:35→21:16)
[2018-04-29] MEDS: PRAVASTATIN 20 MG TABLET PO SCH (08:35)
[2018-04-29] MEDS: CLOPIDOGREL 75 MG TABLET PO SCH (08:35)
[2018-04-29] MEDS: tiZANidine 4 MG TABLET PO SCH ×3 (08:35→21:15)
[2018-04-29] MEDS: MAGNESIUM OXIDE 400 MG TABLET PO SCH (08:35)
[2018-04-29] MEDS: ASPIRIN EC 81 MG TABLET PO SCH (08:35)
[2018-04-29] MEDS: LORazepam 1 MG TABLET PO SCH ×3 (08:35→21:16)
[2018-04-29] MEDS: TEMAZEPAM 15 MG CAPSULE PO PRN (21:15)
[2018-04-30] MEDS: ALBUTEROL/IPRATROPIUM 3 ML NEB RESP TX SCH ×4 (01:36→19:08)
[2018-04-30] MEDS: FUROSEMIDE 40 MG/4 ML VIAL IV SCH (04:26)
[2018-04-30] MEDS: HEPARIN LOCK FLUSH 500 UNIT/5 ML SYRINGE IV SCH ×2 (04:31→16:56)
[2018-04-30 04:57] LABS: Basophils # 0.1 10*3/uL (0.0-0.2); Basophils % 0.9 % (0.0-0.8); Eosinophils # 0.5 10*3/uL (0.0-0.87); Eosinophils % 7.6 % (0.00-10.9); Hematocrit 38.2 VOL% (35.7-47.0); Hemoglobin 12.2 GM/DL (12.0-16.0); Immature Granulocytes % 0.4 %; Immature Granulocytes Absolute 0.03 #; Lymphocytes % 28.8 % (21.3-54.2); Mean Corpuscular HGB Conc 31.9 GM/DL (32-36); Mean Corpuscular Hemoglobin 30 PG (27-34); Mean Corpuscular Volume 92.3 FL (87-102); Mean Platelet Volume 10.2 FL (9.6-12.0); Monocytes # 0.5 10*3/uL (0.11-0.8); Monocytes % 6.6 % (1.7-12.7); Neutrophils # 3.8 10*3/uL (1.4-7.4); Neutrophils % 55.7 % (38.7-73.9); Platelet Count 239 T/CUMM (130-400); Red Blood Count 4.14 MC/CUMM (3.8-5.5); Red Cell Distribution Width 13.1 % (9.3-17.3); White Blood Count 6.9 T/CUMM (4-12)
[2018-04-30 05:17] LABS: Calcium 9.5 MG/DL (8.5-10.1); Osmolality,Calculated 281.3 MOS/KG (273-304); Potassium 3.4 MMOL/L (3.5-5.1)
[2018-04-30] MEDS: MIDODRINE 5 MG TABLET PO PRN (05:45)
[2018-04-30] MEDS ORDERED: POTASSIUM CHLORIDE 20 MEQ TABLET PO ONE (09:00)
[2018-04-30] MEDS: MAGNESIUM OXIDE 400 MG TABLET PO SCH (09:23)
[2018-04-30] MEDS: TOPIRAMATE 200 MG TABLET PO SCH ×2 (09:23→20:02)
[2018-04-30] MEDS: ZONISAMIDE 100 MG CAPSULE PO SCH ×2 (09:24→20:02)
[2018-04-30] MEDS: tiZANidine 4 MG TABLET PO SCH ×3 (09:24→20:02)
[2018-04-30] MEDS: PRAVASTATIN 20 MG TABLET PO SCH (09:24)
[2018-04-30] MEDS: CLOPIDOGREL 75 MG TABLET PO SCH (09:25)
[2018-04-30] MEDS: ASPIRIN EC 81 MG TABLET PO SCH (09:25)
[2018-04-30] MEDS: LORazepam 1 MG TABLET PO SCH (09:25)
[2018-04-30] MEDS: AMOXICILLIN/CLAV 875 MG TABLET PO SCH ×2 (09:25→20:02)
[2018-04-30] MEDS: PANTOPRAZOLE 40 MG TABLET PO SCH ×2 (09:25→20:02)
[2018-04-30] MEDS ORDERED: TUBERCULIN SKIN TEST 0.1 ML SYRINGE INTRADERM ONE (12:00)
[2018-04-30] MEDS: TEMAZEPAM 15 MG CAPSULE PO PRN (20:18)
[2018-05-01] MEDS: ALBUTEROL/IPRATROPIUM 3 ML NEB RESP TX SCH ×4 (01:17→19:32)
[2018-05-01] MEDS: HEPARIN LOCK FLUSH 500 UNIT/5 ML SYRINGE IV SCH ×2 (04:32→18:02)
[2018-05-01] MEDS: PANTOPRAZOLE 40 MG TABLET PO SCH ×2 (09:22→21:47)
[2018-05-01] MEDS: AMOXICILLIN/CLAV 875 MG TABLET PO SCH ×2 (09:22→21:46)
[2018-05-01] MEDS: TOPIRAMATE 200 MG TABLET PO SCH ×2 (09:22→21:46)
[2018-05-01] MEDS: ASPIRIN EC 81 MG TABLET PO SCH (09:22)
[2018-05-01] MEDS: PRAVASTATIN 20 MG TABLET PO SCH (09:23)
[2018-05-01] MEDS: ZONISAMIDE 100 MG CAPSULE PO SCH ×2 (09:23→21:46)
[2018-05-01] MEDS: MAGNESIUM OXIDE 400 MG TABLET PO SCH (09:23)
[2018-05-01] MEDS: tiZANidine 4 MG TABLET PO SCH ×3 (09:24→21:47)
[2018-05-01] MEDS: CLOPIDOGREL 75 MG TABLET PO SCH (09:24)
[2018-05-01] MEDS: cloNIDine 0.1 MG TABLET PO PRN (11:14)
[2018-05-01] MEDS: TEMAZEPAM 15 MG CAPSULE PO PRN (21:46)
[2018-05-01] MEDS: ONDANSETRON 4 MG/2 ML VIAL IV PRN (21:59)
[2018-05-02] MEDS: MIDODRINE 5 MG TABLET PO PRN (00:03)
[2018-05-02] MEDS: ALBUTEROL/IPRATROPIUM 3 ML NEB RESP TX SCH ×4 (02:55→19:57)
[2018-05-02] MEDS: HEPARIN LOCK FLUSH 500 UNIT/5 ML SYRINGE IV SCH ×2 (06:03→20:38)
[2018-05-02 06:10] LABS: Basophils # 0.1 10*3/uL (0.0-0.2); Basophils % 1.1 % (0.0-0.8); Eosinophils # 0.6 10*3/uL (0.0-0.87); Eosinophils % 8.8 % (0.00-10.9); Hematocrit 38.5 VOL% (35.7-47.0); Hemoglobin 12.3 GM/DL (12.0-16.0); Immature Granulocytes % 0.6 %; Immature Granulocytes Absolute 0.04 #; Lymphocytes % 29.5 % (21.3-54.2); Mean Corpuscular HGB Conc 31.9 GM/DL (32-36); Mean Corpuscular Hemoglobin 29 PG (27-34); Mean Corpuscular Volume 91.9 FL (87-102); Mean Platelet Volume 10.2 FL (9.6-12.0); Monocytes # 0.3 10*3/uL (0.11-0.8); NRBC # 0.02 10*3/uL; Neutrophils # 3.6 10*3/uL (1.4-7.4); Platelet Count 253 T/CUMM (130-400); Red Blood Count 4.19 MC/CUMM (3.8-5.5); White Blood Count 6.6 T/CUMM (4-12)
[2018-05-02 06:33] LABS: Calcium 9.4 MG/DL (8.5-10.1); Osmolality,Calculated 281.3 MOS/KG (273-304); Potassium 3.8 MMOL/L (3.5-5.1)
[2018-05-02] MEDS: ONDANSETRON 4 MG/2 ML VIAL IV PRN ×4 (07:42→20:28)
[2018-05-02] MEDS: TOPIRAMATE 200 MG TABLET PO SCH ×2 (09:08→22:16)
[2018-05-02] MEDS: ZONISAMIDE 100 MG CAPSULE PO SCH ×2 (09:08→22:17)
[2018-05-02] MEDS: ASPIRIN EC 81 MG TABLET PO SCH (09:08)
[2018-05-02] MEDS: MAGNESIUM OXIDE 400 MG TABLET PO SCH (09:08)
[2018-05-02] MEDS: CLOPIDOGREL 75 MG TABLET PO SCH (09:08)
[2018-05-02] MEDS: AMOXICILLIN/CLAV 875 MG TABLET PO SCH ×2 (09:08→22:16)
[2018-05-02] MEDS: PANTOPRAZOLE 40 MG TABLET PO SCH ×2 (09:08→22:15)
[2018-05-02] MEDS: PRAVASTATIN 20 MG TABLET PO SCH (09:09)
[2018-05-02] MEDS: tiZANidine 4 MG TABLET PO SCH ×3 (09:09→22:16)
[2018-05-02] MEDS: cloNIDine 0.1 MG TABLET PO PRN (20:38)
[2018-05-02] MEDS: TEMAZEPAM 15 MG CAPSULE PO PRN (22:16)
[2018-05-03] MEDS: ALBUTEROL/IPRATROPIUM 3 ML NEB RESP TX SCH ×2 (00:32→07:34)
[2018-05-03] MEDS: ONDANSETRON 4 MG/2 ML VIAL IV PRN ×3 (00:41→09:25)
[2018-05-03] MEDS: ASPIRIN EC 81 MG TABLET PO SCH (09:21)
[2018-05-03] MEDS: MAGNESIUM OXIDE 400 MG TABLET PO SCH (09:22)
[2018-05-03] MEDS: CLOPIDOGREL 75 MG TABLET PO SCH (09:23)
[2018-05-03] MEDS: PRAVASTATIN 20 MG TABLET PO SCH (09:23)
[2018-05-03] MEDS: TOPIRAMATE 200 MG TABLET PO SCH (09:23)
[2018-05-03] MEDS: PANTOPRAZOLE 40 MG TABLET PO SCH (09:23)
[2018-05-03] MEDS: tiZANidine 4 MG TABLET PO SCH ×2 (09:24→12:49)
[2018-05-03] MEDS: ZONISAMIDE 100 MG CAPSULE PO SCH (09:24)
[2018-05-03] MEDS: HEPARIN LOCK FLUSH 500 UNIT/5 ML SYRINGE IV SCH (09:26)
[2018-05-03 11:35] VITALS: BP 150/84
== END 2018-05-03 13:35 | disposition home or self-care (01) | DRG 194 ==
LOC: EDBD → EDUNIT# → N.ED 11:29 → SUATTDRO 15:54 → N.EDINP 15:54 → N.2E 18:18
PROVIDERS: ADMIT Family Medicine; ATTEND Internal Medicine

== ENCOUNTER 2019-11-04 08:39 | Inpatient (IN) ==
[2019-11-04] MEDS ORDERED: SODIUM CHLORIDE 0.9% 2,250 ML IV ONE (09:05)
[2019-11-04] MEDS ORDERED: PIPERACILLIN/TAZOBACTAM 3,375 MG in SODIUM CHLORIDE 0.9% 100 ML IV STA (09:06)
[2019-11-04] MEDS ORDERED: HYDROCORTISONE 100 MG VIAL IV STA (09:06)
[2019-11-04] MEDS ORDERED: NALOXONE 0.4 MG/ML VIAL IV STA (09:12)
[2019-11-04 09:14] LABS: Basophils # 0.1 10*3/uL (0.0-0.2); Basophils % 0.3 % (0.0-0.8); Hematocrit 42.6 VOL% (35.7-47.0); Immature Granulocytes % 3.6 %; Immature Granulocytes Absolute 1.02 #; Lymphocytes # 0.8 10*3/uL (1.4-4.0); Lymphocytes % 2.7 % (21.3-54.2); Mean Corpuscular HGB Conc 30.5 GM/DL (32-36); Mean Corpuscular Volume 97.3 FL (87-102); Mean Platelet Volume 10.8 FL (9.6-12.0); Monocytes % 3.5 % (1.7-12.7); NRBC # 0.02 10*3/uL; Neutrophils % 89.9 % (38.7-73.9); Platelet Count 264 T/CUMM (130-400); Red Blood Count 4.38 MC/CUMM (3.8-5.5); Red Cell Distribution Width 16.2 % (9.3-17.3); White Blood Count 28.7 T/CUMM (4-12)
[2019-11-04 09:22] LABS: INR 1.2; PT Patient Result 12.5 SECS (9.6-12.2); Partial Thromboplastin Time 28.6 SECS (20.8-36.0)
[2019-11-04 09:44] LABS: Alanine Aminotransferase 147 U/L (13-56); Albumin 3.1 G/DL (3.4-5.0); Alkaline Phosphatase 94 U/L (45-117); Aspartate Amino Transferase 166 U/L (0-37); Blood Urea Nitrogen 171 MG/DL (7-18); Calcium 9.7 MG/DL (8.5-10.1); Estimated Glom Filtration Rate 8 ML/MIN; Glucose 149 MG/DL (74-106); Osmolality,Calculated 349.6 MOS/KG (273-304); Total Protein 7.6 G/DL (6.4-8.3)
[2019-11-04] MEDS ORDERED: DEXTROSE 50% 25 GM/50 ML VIAL IV STA (09:57)
[2019-11-04] MEDS ORDERED: INSULIN REGULAR 100 UNIT/ML IV STA (09:57)
[2019-11-04] MEDS ORDERED: CALCIUM CHLORIDE 1,000 MG/10 ML SYRINGE IV STA (09:57)
[2019-11-04] MEDS ORDERED: SODIUM BICARBONATE 50 MEQ/50 ML VIAL IV STA (09:57)
[2019-11-04 10:11] LABS: Amorphous Crystals,Urine Few /HPF (Few); Apearance,Urine CLOUDY (Clear); Bacteria,Urine Few /HPF (Few); Bilirubin,Urine Negative (Negative); Blood, Urine Negative (Negative); Glucose,Urine (UA) Negative (Negative); Hyaline Casts,Urine 91 /LPF (0-3); Ketones,Urine Negative (Negative); Mucus,Urine Occasional /LPF (Occasional); Nitrite,Urine Negative (Negative); Protein,Urine 30 MG/DL; RBC,Urine 4 /HPF (0-4); Squamous Epithelial Cell,Urine Occasional /HPF (0-10); Urine Color Amber (Yellow); Urine Specific Gravity 1.018 (1.001-1.035); Urine Urobilinogen < 2.0 EU/DL (0.2-1.0); WBC,Urine 10 /HPF (0-6)
[2019-11-04] MEDS ORDERED: DEXTROSE 50% 25 GM/50 ML SYRINGE IV ONE ×2 (10:14→10:23)
[2019-11-04 10:15] LABS: Band Neutrophils 5 % (0-10); Lymphocytes 2 % (20-55); Segmented Neutrophils 89 % (50-85); Total Cells Counted 100
[2019-11-04 10:16] LABS: Macrocytosis Slight
[2019-11-04 10:21] LABS: ABG Base Excess -25.5 MMOL/L (-2.5-2.5); ABG HCO3 7.3 MMOL/L (20-26); ABG Oxygen Saturation 96.5 % (95-100); ABG TCO2 4.8 MMOL/L (23-27); Allen Test Positive
[2019-11-04 10:44] LABS: ABG PH 7.027 (7.35-7.45)
[2019-11-04 10:45] LABS: ABG PCO2 19.2 MM HG (35-48)
[2019-11-04] MEDS ORDERED: ACETAMINOPHEN 325 MG TABLET PO PRN (11:25)
[2019-11-04] MEDS ORDERED: ONDANSETRON 4 MG/2 ML VIAL IV PRN (11:25)
[2019-11-04] MEDS ORDERED: NALOXONE 0.4 MG/ML VIAL IV PRN (11:25)
[2019-11-04] MEDS ORDERED: ALBUTEROL 2.5 MG/3 ML NEB RESP TX PRN (11:25)
[2019-11-04] MEDS ORDERED: SODIUM CHLORIDE 0.9% 1,000 ML IV SCH (11:30)
[2019-11-04] MEDS ORDERED: FAMOTIDINE 20 MG/2 ML VIAL IV SCH (11:30)
[2019-11-04] MEDS ORDERED: DEXTROSE 10% 250 ML BAG IV PRN (11:41)
[2019-11-04] MEDS ORDERED: GLUCAGON 1 MG VIAL IM PRN (11:41)
[2019-11-04 11:50] LABS: Risk Ratio 3.42; VLDL CHOLESTEROL 22.6 MG/DL
[2019-11-04 11:50] LABS: ABG Base Excess -22.6 MMOL/L (-2.5-2.5); ABG HCO3 8.6 MMOL/L (20-26); ABG Oxygen Saturation 88.3 % (95-100); ABG PCO2 23.2 MM HG (35-48); ABG TCO2 6.4 MMOL/L (23-27); Allen Test Positive
[2019-11-04 11:51] LABS: ABG PH 7.079 (7.35-7.45)
[2019-11-04 11:58] LABS: Barbiturates Screen,Urine Negative (Negative); Benzodiazepines Screen,Urine Positive (Negative); Cannabinoid Screen,Urine Negative (Negative); Opiate Screen,Urine Positive (Negative); Phencyclidine Screen,Urine Negative (Negative)
[2019-11-04 12:08] LABS: Thyroid Stimulating Hormone 3.52 uIU/ml (0.358-3.74)
[2019-11-04] MEDS: HEPARIN 5,000 UNIT/1 ML VIAL SUBCUT SCH (13:20)
[2019-11-04] MEDS: SODIUM BICARB INJ 150 MEQ in DEXTROSE 5% 850 ML IV SCH ×3 (14:20→23:14)
[2019-11-04] MEDS ORDERED: SODIUM ZIRCONIUM CYCLOSILICATE 10 GM PACK PO SCH (15:00)
[2019-11-04 15:26] LABS: Calcium 9.6 MG/DL (8.5-10.1); Osmolality,Calculated 351.9 MOS/KG (273-304)
[2019-11-04] MEDS: NOREPINEPHRINE 8 MG in SODIUM CHLORIDE 0.9% 242 ML IV SCH (18:25)
[2019-11-04] MEDS ORDERED: VANCOMYCIN INJ 1,000 MG in SODIUM CHLORIDE 0.9% 250 ML IV PRN (19:02)
[2019-11-04] MEDS ORDERED: VANCOMYCIN INJ 1,000 MG in SODIUM CHLORIDE 0.9% 250 ML IV ONE (20:00)
[2019-11-04] MEDS: PIPERACILLIN/TAZOBACTAM 3,375 MG in SODIUM CHLORIDE 0.9% 100 ML IV SCH (21:03)
[2019-11-04] MEDS: ZONISAMIDE 100 MG CAPSULE PO SCH (21:04)
[2019-11-04] MEDS: TOPIRAMATE 200 MG TABLET PO SCH (21:04)
[2019-11-05] MEDS: HEPARIN 5,000 UNIT/1 ML VIAL SUBCUT SCH ×2 (00:34→15:23)
[2019-11-05 01:34] LABS: Allen Test Positive; Pt O2 Delivery Device BIPAP
[2019-11-05 01:39] LABS: ABG Base Excess -10.5 MMOL/L (-2.5-2.5); ABG HCO3 16.2 MMOL/L (20-26); ABG Oxygen Saturation 93.2 % (95-100); ABG PCO2 39.6 MM HG (35-48); ABG PH 7.235 (7.35-7.45); ABG PO2 76.6 MM HG (80-95); ABG TCO2 14.9 MMOL/L (23-27)
[2019-11-05 04:32] LABS: Basophils # 0.1 10*3/uL (0.0-0.2); Basophils % 0.3 % (0.0-0.8); Hematocrit 40.9 VOL% (35.7-47.0); Hemoglobin 13.6 GM/DL (12.0-16.0); Immature Granulocytes % 2.1 %; Immature Granulocytes Absolute 0.76 #; Lymphocytes # 1.5 10*3/uL (1.4-4.0); Mean Corpuscular HGB Conc 33.3 GM/DL (32-36); Mean Corpuscular Volume 90.1 FL (87-102); Monocytes % 1.9 % (1.7-12.7); NRBC # 0.06 10*3/uL; Neutrophils % 91.7 % (38.7-73.9); Platelet Count 200 T/CUMM (130-400); Red Blood Count 4.54 MC/CUMM (3.8-5.5); Red Cell Distribution Width 15.9 % (9.3-17.3); White Blood Count 36.8 T/CUMM (4-12)
[2019-11-05] MEDS: SODIUM BICARB INJ 150 MEQ in DEXTROSE 5% 850 ML IV SCH ×3 (04:36→11:49)
[2019-11-05 04:56] LABS: Albumin 2.8 G/DL (3.4-5.0); Bilirubin,Total 0.7 MG/DL (0.2-1.0); Calcium 9.4 MG/DL (8.5-10.1); Osmolality,Calculated 349.9 MOS/KG (273-304); Total Protein 7.1 G/DL (6.4-8.3)
[2019-11-05 05:02] LABS: Band Neutrophils 2 % (0-10); Lymphocytes 6 % (20-55); Macrocytosis Slight; Ovalocytes Slight; Platelet Estimate Adequate; Segmented Neutrophils 91 % (50-85); Total Cells Counted 100
[2019-11-05 08:02] VITALS: BP 158/65
[2019-11-05 09:31] LABS: ABG Base Excess -1.5 MMOL/L (-2.5-2.5); ABG HCO3 20.8 MMOL/L (20-26); ABG Oxygen Saturation 98.5 % (95-100); ABG PCO2 28.8 MM HG (35-48); ABG PH 7.477 (7.35-7.45); ABG PO2 151.4 MM HG (80-95); ABG TCO2 21.7 MMOL/L (23-27); Allen Test Positive; Pt O2 Delivery Device BIPAP
[2019-11-05] MEDS: TOPIRAMATE 200 MG TABLET PO SCH (10:01)
[2019-11-05] MEDS: ZONISAMIDE 100 MG CAPSULE PO SCH (10:05)
[2019-11-05] MEDS: PIPERACILLIN/TAZOBACTAM 3,375 MG in SODIUM CHLORIDE 0.9% 100 ML IV SCH (10:05)
[2019-11-05] MEDS ORDERED: INSULIN REGULAR 100 UNIT/ML SUBCUT SCH (12:00)
[2019-11-05] MEDS ORDERED: FAMOTIDINE 20 MG/2 ML VIAL IV SCH (12:00)
[2019-11-05] MEDS: MORPHINE 4 MG/1 ML VIAL IV PRN ×3 (15:09→21:18)
[2019-11-05] MEDS: NOREPINEPHRINE 8 MG in SODIUM CHLORIDE 0.9% 242 ML IV SCH (15:23)
[2019-11-05] MEDS: LORazepam 2 MG/1 ML VIAL IV PRN ×4 (17:07→22:05)
[2019-11-06] MEDS: MORPHINE 4 MG/1 ML VIAL IV PRN ×7 (00:13→20:21)
[2019-11-06] MEDS: LORazepam 2 MG/1 ML VIAL IV PRN ×3 (11:17→18:19)
== END 2019-11-06 23:35 | disposition expired | DRG 871 ==
LOC: EDBD → EDUNIT# → N.ED 08:39 → N.EDINP 11:25 → N.CC 14:36 → N.4E 11-05 15:02
PROVIDERS: ADMIT Internal Medicine; ATTEND Internal Medicine